=== PATIENT | male | born 1985 | race Caucasian/White ===

== ENCOUNTER 2017-01-17 19:46 | Emergency (ER) | payer MEDICAID ==
[~2017-01-17] VITALS: Ht 175.3 cm; Wt 98.2 kg
[2017-01-17 20:55] LABS: BASOPHILS % (AUTO) 0.5 % (0.0-2.0); EOSINOPHILS % (AUTO) 0.6 % (1.0-6.0); HEMATOCRIT 45.6 % (41-53); HEMOGLOBIN 15.2 g/dL (13.5-17.5); LYMPHOCYTES # (AUTO) 1.7 K/uL (1.0-4.8); LYMPHOCYTES % (AUTO) 15.6 % (22.0-44.0); MEAN CORPUSCULAR HEMOGLOBIN 29.9 pg (26.0-34.0); MEAN CORPUSCULAR HGB CONC 33.4 G/dL (31.0-37.0); MEAN CORPUSCULAR VOLUME 90 fL (80-100); MONOCYTES % (AUTO) 9.7 % (2.0-9.0); NEUTROPHILS # (AUTO) 7.9 K/uL (1.8-7.7); NEUTROPHILS % (AUTO) 73.6 % (40.0-70.0); PLATELET COUNT (AUTO) 297 K/uL (150-450); RED BLOOD CELL COUNT(AUTO) 5.09 MIL/uL (4.50-5.90); RED CELL DISTRIBUTION WIDTH 14.1 % (11.5-14.5); WHITE BLOOD COUNT (AUTO) 10.7 K/uL (4.5-11.0)
[2017-01-17 21:03] LABS: ANION GAP 10 mmol/L (8-16); CALCIUM, TOTAL 9.3 mg/dL (8.8-10.5); CARBON DIOXIDE 27 mmol/L (22-29); CHLORIDE 104 mmol/L (98-107); CREATININE 0.89 mg/dL (0.60-1.30); GLOMERULAR FILTR. RATE CALC > 60 mL/min (>60); POTASSIUM 3.8 mmol/L (3.5-5.1); SODIUM SERUM 141 mmol/L (136-145); UREA NITROGEN, BLOOD 16 mg/dL (7-18)
[2017-01-17 21:09] LABS: ALANINE AMINOTRANSFERASE 71 U/L (12-78); ALBUMIN 4.5 g/dL (3.4-5.0); ASPARTATE AMINOTRANSFERASE 44 U/L (15-37); BILIRUBIN,TOTAL 1.1 mg/dL (0.1-1.0); TOTAL PROTEIN, SERUM 7.8 g/dL (6.4-8.2)
[2017-01-17 21:28] LABS: SALICYLATE < 2.8 mg/dL (2.8-20.0)
[2017-01-17 21:36] LABS: ACETAMINOPHEN < 2 mcg/mL (10-30)
[2017-01-17 21:40] VITALS: BP 130/90
== END 2017-01-17 21:57 | disposition home or self-care (01) ==
LOC: EMS 19:47
DX: F15.10 Other stimulant abuse, uncomplicated (principal); F12.90 Cannabis use, unspecified, uncomplicated; Z02.89 Encounter for other administrative examinations
CPT/HCPCS: 36415; 80053; 80307; 85025; 93005; 99285; G0480; G0481